=== PATIENT | male | born 1945 | race Caucasian/White ===

== ENCOUNTER → 2018-11-06 13:36 | Outpatient (CLI) | payer OTHER, SELFPAY ==
--- NOTE | 2018-11-06 | DI.MRI.S_ITS ---
PROCEDURE: MR KNEE LT WO CON INDICATIONS: Unilateral primary osteoarthritis, left knee TECHNIQUE: Noncontrast sagittal PD fast spin echo and T2 fast spin echo with fat saturation, sagittal 3-D FLASH with fat saturation; coronal T1 spin echo and PD fast spin echo with fat saturation, and axial PD fast spin echo with fat saturation through the knee. COMPARISON: None. FINDINGS: Image quality: Excellent. Menisci: The anterior multiple cut off saw operator horns of the medial meniscus are detached. There is degenerative fraying of the free edge of the anterior and posterior horns as well as the body of the medial meniscus. There is vertically oriented linear high signal intensity traversing the anterior horn medial meniscus. Amorphous high signal intensity within the body and posterior horn of the medial meniscus is present, demonstrating superior and inferior articular surface extension, indicating degenerative tearing. Linear oblique high T2 signal intensity traverses the posterior horn lateral meniscus, demonstrating superior and inferior articular surface extension, indicating oblique tearing. Cruciate ligaments: The anterior cruciate ligament demonstrates chronic full-thickness tearing. Posterior cruciate ligament is intact. Medial structures: The medial collateral ligament demonstrates high grade fluid signal at the femoral origin. Visualized portions of the pes anserinus tendons appear normal. There is a small amount of medial bursal fluid. There is mild T2 signal elevation within the semimembranosus tendon at the tibial insertion site. Lateral structures: The lateral collateral ligament demonstrates moderate fluid signal at the femoral origin. The, long and short heads of the biceps femoris tendon appear intact. The popliteus tendon appears normal. Iliotibial band appears normal. Anterior structures: The quadriceps and patellar tendons appear intact. There is mild T2 signal elevation within the patellar tendon at the patellar insertion site. Patellar alignment is normal. No femoral trochlear dysplasia or ventral trochlear prominence. No edema in the infrapatellar fat pad. Bones and cartilage: No bone marrow contusions or fractures. There is severe tricompartmental periarticular osteophyte formation. There is mild subchondral degenerative marrow edema within the weightbearing aspects of the medial and lateral femoral condyles, as well as the medial and lateral tibial plateaus. There is severe diffuse articular cartilage loss overlying the weightbearing aspect of the medial femoral condyle and medial tibial plateau. There is a focal region of full-thickness articular cartilage loss overlying the posterior weightbearing aspect of the lateral femoral condyle measuring 12 mm. Mild diffuse articular cartilage loss overlies the medial and lateral patellar facets. Joint space: There is a small knee joint effusion. There are multiple intra-articular loose bodies, largest of which is in the posterior aspect of the intercondylar notch measuring 15 mm. Small Ramos's cyst. Small ganglion cyst along the popliteus. Normal appearing synovial plicae are incidentally noted. IMPRESSION: 1. Tricompartment osteoarthritis with associated articular cartilage loss, knee joint effusion, and intra-articular loose bodies. 2. Chronic full-thickness anterior cruciate ligament tearing. 3. Partial-thickness tears of the medial and lateral collateral ligaments. 4. Medial and lateral meniscal tearing. 5. Insertional tendinitis of the semimembranosus. 6. Medial bursitis. 7. Mild patellar tendinitis. Dictated by: Sophia Benedict M.D. on 11/06/2018 at 14:29 Approved by: Sophia Benedict M.D. on 11/06/2018 at 14:39
== END ==
PROVIDERS: PCP Family Medicine; Visit Provider Orthopaedic Surgery
DX: M17.12 Unilateral primary osteoarthritis, left knee (principal); S83.512A Sprain of anterior cruciate ligament of left knee, initial encounter; S83.422A Sprain of lateral collateral ligament of left knee, initial encounter; S83.412A Sprain of medial collateral ligament of left knee, initial encounter; S83.282A Other tear of lateral meniscus, current injury, left knee, initial encounter; S83.242A Other tear of medial meniscus, current injury, left knee, initial encounter; M76.52 Patellar tendinitis, left knee
CPT/HCPCS: 73721

== ENCOUNTER 2019-01-22 08:22 | Day surgery (SDC) | payer OTHER, SELFPAY ==
[2019-01-08 09:48] VITALS: BMI 26.9
[2019-01-22] VITALS (13 sets, daily range): BP systolic 82–143; BP diastolic 46–91; PULSE 49–75; RESP 11–92; TEMP 35.8–36.7; O2SAT 13–98; BMI 26.9
--- NOTE | 2019-01-22 07:56 | DI.RAD.S_ITS ---
PROCEDURE: XR KNEE LT 1TO2V INDICATIONS: post op TECHNIQUE: 2 views of the knee were acquired. COMPARISON: None. FINDINGS: Bones: Postsurgical changes of a left total knee arthroplasty are noted. Hardware components are in expected alignment with no radiographic evidence of acute hardware complication. No convincing periprosthetic fractures identified. Soft tissues: A surgical drain projects over the anterior left knee joint. There is a small to moderate left knee joint effusion. There is diffuse anterior knee soft tissue subcutaneous emphysema and soft tissue edema consistent with postsurgical change. Vascular calcifications are present. IMPRESSION: Postsurgical changes of left total knee arthroplasty placement as described above. Dictated by: Jorge Luis Jordan M.D. on 01/22/2019 at 15:36 Approved by: Jorge Luis Jordan M.D. on 01/22/2019 at 15:38
[2019-01-22] MEDS: ACETAMINOPHEN 325 MG TABLET 975 MG PO ×3 (09:04→20:23)
[2019-01-22] MEDS: PREGABALIN 75 MG CAPSULE PO (09:05)
[2019-01-22] MEDS: CELECOXIB 200 MG CAPSULE PO (09:05)
[2019-01-22] MEDS: LACTATED RINGERS 1,000 ML 42 ML IV ×2 (09:06→12:45)
[2019-01-22] MEDS: VANCOMYCIN 1,000 MG/200 ML PIGGYBACK 200 MG IV (09:46)
--- NOTE | 2019-01-22 10:37 | PM.PREOP ---
Pre-operative Note Interval Note History & Physical reviewed/Exam performed by Physician: Yes Changes to H&P: No
--- NOTE | 2019-01-22 10:38 | PM.OP.1 ---
Operative Date/Time/Diagnoses Date of procedure: 01/22/19 Time of procedure: 10:59 Pre-op diagnosis: Left knee osteoarthritis Post-op diagnosis: same Procedure & Clinicians Procedure: Left total knee arthroplasty Same procedure as scheduled: Yes Indications: The patient has had progressively worsening left knee pain with radiographic changes consistent with arthritis. Non-operative management has failed and the patient has requested total knee replacement. The risks, benefits and alternatives to surgery were discussed with the patient prior to proceeding. Risks discussed included, but were not limited to, failure to relieve pain, stiffness, infection, nerve damage, deep venous thrombosis, pulmonary embolism, stroke, coma, heart attack, permanent paralysis and , as well as the potential need for eventual revision of the prosthetic. Surgeon: Brisa Rueda Regulatory Services Consultant: Hugo Valente Anesthesia Type: General and Spinal Operative Notes Findings: Severe left knee osteoarthritis, good stability Closure Type: primary Specimen(s): none sent Prosthetic devices, grafts, tissues, transplants, or devices: Rueda [employer]hew Journey BCS 2 size 5 femur, size 5 tibia, 38 patella, +9 poly Applied: drain(s) Estimated Blood Loss (mL): 200 Blood products transfused: none Tourniquet time (min): 99 Procedure in detail: The patient was seen in the pre-operative area, where the patient identified the left knee as the operative site and this was marked with my initials. The patient received pre-operative antibiotics, and was taken to the operating room and placed on the operative table in the supine position. After satisfactory anesthesia, a horse race timer out was performed. The left leg was encircled with a tourniquet about the proximal thigh, and the leg was prepared from the toes to the tourniquet with ChloroPrep in the usual fashion and draped through sterile drapes. The leg was elevated and exsanguinated with Eschmark bandage and the tourniquet inflated to [250] mmHg pressure. The knee was approached through an approximately 18 cm incision centered over the patella and carried into the knee through a medial parapatellar arthrotomy. A portion of the medial and lateral meniscus was resected. Soft tissue was carefully mobilized around the patella the patella was measured with a caliper. Bone was resected from the patella and the patellar height was reconstituted with up an appropriate sized patellar component. A cover was then placed on the patella. A small amount of additional medial and lateral meniscus was resected. The visionare guide fit well to the distal femur. It looked like an appropriate distal femoral cut and the cut was made without difficulty. The rotation was assessed and the appropriate size femoral guide was placed on the distal femur and finishing cuts were made. There was no evidence of notching. The anterior, posterior and chamfer cuts were then made. The posterior osteophytes and soft tissues were then removed. The posterior capsule was injected with part of a mixture of 60 ml 0.25% Marcaine mixed with 20 ml Exparel for post operative pain control. The remainder of this mixture was injected into the capsule and subcutaneous tissues during cement curing. The tibia was prepared and the visionaire guide fit well to the distal tibia. The rotation was assessed. The patient was placed in extension residual medial and lateral meniscus as well as any residual bone was carefully resected. 2mm additional tibia was resected. Hemostasis was achieved especially posteriorly. Additional local was injected into the posterior capsule. The extension gap was assessed and additional releases for gap balancing were performed as necessary. It was checked with the gap office clinician. The femoral component was trial was placed and the notch was finished. Trial tibial and femoral components were then placed and the knee placed through a range of motion. Range of motion was [0-130], with good stability throughout the range. The trials were then removed, and the tibia was finished. The bone was prepared with pulsatile lavage, and dried with a sponge. Cement was applied and the final prosthetics placed. Excess cement was removed during and after cement curing. A brief Betadine soak was performed. After confirming there was no extruded cement posteriorly, the final tibial insert was placed. The knee was copiously irrigated and the tourniquet deflated. Hemostasis was obtained with the Bovie. A drain was placed and brought out superolaterally. The capsule was closed with interrupted Vicryl suture. The subcutaneous layer was closed with barbed sutures, and the skin with a running 3-0 V-Lock suture and Surgical glue. An Aquacel Ag dressing was applied and the patient was taken to recovery having tolerated the procedure well. Complications: none Post-operative Condition: stable Disposition: Acute Care Plan for aftercare: The patient will be maintained on a standard total knee replacement protocol with weight bearing as tolerated. The patient will receive Lovenox and sequential compression devices for DVT prophylaxis. The patient will be discharged home when safe for the home environment.
[2019-01-22] MEDS: CEFAZOLIN 2 GM/100 ML FROZ.PIGGY IV ×2 (10:55→20:22)
--- NOTE | 2019-01-22 11:39 | SUR.OPER ---
Supine on padded OR bed. Pillow under head, arms secured on padded armboards <90 degree abduction. Safety belt across torso. Non-operative leg secured with tape over blanket over lower leg. Operative leg secured in [place]. Foam padded brace at thigh of operative leg.
[2019-01-22] MEDS: BUPIVACAINE LIPOSOME 266 MG/20 ML VIAL INJ (11:46)
[2019-01-22] MEDS: BUPIVACAINE 0.25% W/ EPI 30 ML VIAL 60 ML INJ (11:46)
[2019-01-22] MEDS: TRANEXAMIC ACID 1,000 MG VIAL 1000 MG INJ ×2 (11:47→13:15)
[2019-01-22] MEDS: SODIUM CHLORIDE IRRIG SOLUTION 250 ML, POVIDONE-IODINE SPONGE STICKS 1 APPLIC IRR (11:48)
--- NOTE | 2019-01-22 14:40 | SUR.PHASEI ---
Transferred to room 225 in stable condition. VSS, HV to be unclamped at 1515. Update on pts intake given to LORE Medrano.
--- NOTE | 2019-01-22 15:01 | PC.NURSE ---
Patient is resting in bed post-op. Patient is A/Ox4, grecia in the 40's. Patient denies pain, SOB, N/V. LLE dsg is CDI, ice iapplied to incision site. Patient confirms sensation in bilateral LE. Confirms tingling, numbness but unable to move bilateral LE. Bilateral LE pulses are equal. Bilateral SCD's applied. IV is patent and intact in RUE. LR at 125ml/hr per orders. Patient taking sips of water, says he is hungry.
[2019-01-22] MEDS: LACTATED RINGERS 1,000 ML 125 ML IV (15:21)
[2019-01-22] MEDS: ASPIRIN EC 81 MG TABLET PO (20:22)
[2019-01-22] MEDS: DOCUSATE 100 MG CAPSULE PO (20:23)
[2019-01-23] MEDS: LACTATED RINGERS 1,000 ML 125 ML IV (00:07)
[2019-01-23 00:23] VITALS: BP 118/69; PULSE 64; RESP 18; TEMP 36.7; O2SAT 94
[2019-01-23] MEDS: CEFAZOLIN 2 GM/100 ML FROZ.PIGGY IV (03:04)
[2019-01-23 04:56] VITALS: BP 113/70; PULSE 59; RESP 16; TEMP 36.8; O2SAT 94
[2019-01-23 06:20] LABS: Hematocrit 42.6 % (41-53); Hemoglobin 14.2 g/dL (13.5-17.5)
--- NOTE | 2019-01-23 06:32 | PC.NURSE ---
Pt POD 1 s/p TKR on left knee. DSG CDI. Pt performing ankle waves. Appeared to not sleep overnight. Reports pain tolerable, no pain medication given overnight. Pt states he is expecting pain to increased per MD once surgery medication wears off in 24hrs ~1400. IVF DC'd per order this morning at 0600. Pt eating large amts of food overnight. Denies nausea. Anticipating discharge to home around 1100 after seen by PT.
[2019-01-23 08:00] VITALS: BP 140/77; PULSE 63; RESP 20; TEMP 37.1; O2SAT 95
[2019-01-23] MEDS: OXYCODONE IR 5 MG TABLET PO (08:48)
[2019-01-23] MEDS: METOPROLOL ER 50 MG TABLET PO (08:48)
[2019-01-23] MEDS: POTASSIUM CHLORIDE 10 MEQ TAB PO (08:49)
[2019-01-23] MEDS: DOCUSATE 100 MG CAPSULE PO (08:49)
[2019-01-23] MEDS: ACETAMINOPHEN 325 MG TABLET 975 MG PO (08:49)
[2019-01-23] MEDS: ATORVASTATIN 20 MG TABLET PO (08:49)
[2019-01-23] MEDS: LISINOPRIL 20 MG TABLET 40 MG PO (08:49)
[2019-01-23] MEDS: ASPIRIN EC 81 MG TABLET PO (08:49)
[2019-01-23] MEDS: hydroCHLOROthiazide 25 MG TABLET PO (08:49)
[2019-01-23] MEDS: FISH OIL 1,000 MG CAPSULE 1000 MG PO (08:50)
[2019-01-23] MEDS: AMLODIPINE 2.5 MG TABLET PO (08:50)
--- NOTE | 2019-01-23 09:10 | PT.IIE ---
Current Diagnoses Unilateral primary osteoarthritis, left knee (01/22/19) Surgery Performed Operation Date: 01/22/19 10:45 Actual Procedures p Total Knee Arthroplasty(Left) - Brisa Rueda MD Surgical History (Last Updated 01/08/19 @ 10:25 by Shannen Lan, RN) History of colonoscopy (Acute 05/24/16) Hx of bilateral cataract extraction (Acute ~2008) Hx of tonsillectomy (Acute) Medical History (Last Updated 01/08/19 @ 10:43 by Shannen Lan RN) Aortic stenosis (Acute) BCC (basal cell carcinoma) (Acute) DJD (degenerative joint disease) (Acute) Former smoker (Acute) Hearing loss (Acute) Heartburn (Acute) HLD (hyperlipidemia) (Acute) HTN (hypertension) (Acute) SARAH on CPAP (Acute) Osteoarthritis (Acute) RLS (restless legs syndrome) (Acute) Physical Therapy Inpatient Evaluation/Re-Eval M1 PT/OT-IP Prior Functional Status Start: 01/23/19 09:49 Freq: NEEDED Status: Active Protocol: Document 01/23/19 09:10 AB (Rec: 01/23/19 09:56 AB [id number]) Medical Review Prior Functional Status Medical History Reviewed Yes Communication able to make needs known Mobility and Gait pt stated that he is independent with all mobilities and ambulation without AD Social History Household Members spouse Living Arrangements House Number of Floors (Floors) Two Floors Number of Stairs To Enter/Railing? pt will stay at her daughter's house: info regarding daughter's home set up no steps to enter; pt will stay on main level Home Environment Standard Height Toilet,Tub/ Shower Home Equipment Front Wheel Walker,Raised Toilet Seat Without Armrests Employment Status Retired Additional Social History Comment pt plans to do sponge bathing M2 PT-IP Current Condition Start: 01/23/19 09:49 Freq: NEEDED Status: Active Protocol: Document 01/23/19 09:10 AB (Rec: 01/23/19 09:56 AB [id number]) Physical Therapy Current Condition Current Condition Evaluation Date 01/23/19 Treatment Diagnosis s/p L TKA; difficulty in walking Onset Date 01/22/19 Weight Bearing Status Weight Bearing Status Weight Bear as Tolerated M3 PT-IP Subjective Start: 01/23/19 09:49 Freq: NEEDED Status: Active Protocol: Document 10/18/19 09:10 AB (Rec: 01/23/19 09:56 AB [id number]) Subjective Physical Therapy Visit Type Type Initial Evaluation Visit Start Time 09:10 Visit Stop Time 09:41 Total Visit Minutes 31 Number of ENVELOPE SEALER Visits 0 Physical Therapy Visit Comments Patient Comments pt agreeable to do PT Therapy Pain Assessment Pain When Pain Assessed At Rest Pain Present Pain Present Pain Reported Location Left Knee Intensity 2 Scale Used Numeric (1 - 10) Pain Management Techniques Apply Cold,Timing of Activity with Medications M4 PT-IP Mobility and Gait Start: 01/23/19 09:49 Freq: NEEDED Status: Active Protocol: Document 01/23/19 09:10 AB (Rec: 01/23/19 09:56 AB [id number]) PT-Bed Mobility Assessment Supine to Sit Supine to Sit Standby Assistance Scooting Scooting to Edge of Bed Standby Assistance PT-Transfer Assessment Sit to and From Stand Sit to and from Stand Standby Assistance Equipment Transfer Assistive Device Gait Belt,Front Wheeled Walker Transfers Transfer Destination Chair Transfer Technique pt ambulated using FWW Transfer Ability Level of Assist Standby Assistance,Contact Guard Assistance Gait Assessment Gait Gait Assistance Required: Standby Assistance,Contact Guard Assist Distance (Feet) 150 Able to Maintain Weight Bearing Status Yes During Gait Assistive Devices Assistive Device Gait Belt,Front Wheeled Walker Orthotic/Prosthetic Devices or Brace: No Gait Deviations General Gait Pattern Antalgic Factors Limiting Gait Function Factors Limiting Gait Function Decreased Activity Tolerance, Decreased Strength,Limited Range of Motion,Pain,Poor Balance PT-Balance Assessment Sitting Balance and Reactions Static Sitting Balance Ability Normal Dynamic Sitting Balance Ability Normal Standing Balance and Reactions Static Standing Balance Ability Good Dynamic Standing Balance Ability Fair Device Used FWW M5 PT-IP Objective Assessments Start: 01/23/19 09:49 Freq: NEEDED Status: Active Protocol: Document 01/23/19 09:10 AB (Rec: 01/23/19 09:56 AB [id number]) Orientation Orientation/Cognition Level of Alertness Alert Orientation Name,Place,Situation Language Function Ability No Deficits Noted Safety Awareness Understands Safety Issues Memory Description No Deficits Noted Gross Range of Motion Lower Extremity ROM Assessment Left Impaired Impairments L knee flexion : 80 deg L knee extension: -10 deg Strength Lower Extremity Strength Assessment Left Impaired Hip 4-/5 Knee 3+/5 Coordination Assessment Gross Coordination Gross Coordination WNL Sensation Assessment Sensation Gross Sensation WNL Muscle Tone Muscle Tone WNL Yes M6 PT-IP Treatment Start: 01/23/19 09:49 Freq: NEEDED Status: Active Protocol: Document 01/23/19 09:10 AB (Rec: 01/23/19 09:56 AB [id number]) Physical Therapy Treatment Exercises Exercises Ankle Pumps,Quad Sets,Heel Slides Education Education Provided Precautions,Weight Bearing Status,Post-Op Packet,Safety M7 PT-IP Assessment and Plan Start: 01/23/19 09:49 Freq: NEEDED Status: Active Protocol: Document 01/23/19 09:10 AB (Rec: 01/23/19 09:56 AB [id number]) PT Summary Assessment and Plan Potential Rehabilitation Potential Good Status of Condition at Evaluation Stable Summary Impairments Pain,ROM,Strength,Balance,Bed Mobility,Transfers,Gait, Activity Tolerance Assessment Summary pt requiring SBA to CGA with mobility using FWW. pt plans to go home with family to assist him. pt may go home when medically stable. Goals Bed Mobility Goal Independent Transfer Goal Independent,Crutches Gait Goal Independent,Front Wheel Walker Gait Distance 250 Days to Meet Goals 3 Frequency of Treatment Frequency Of Treatment Twice a Day Treatment Plan Physical Therapy Treatment Plan Bed Mobility Training,Transfer Training,Gait Training, Therapeutic Exercise,Balance Retraining,Post Op Education, Discharge Planning,Hot or Cold Pack,Neuromuscular Re-ed, Coordination Retraining,Manual Therapy Recommendations To Nursing Amount of Assist Needed 1 Person Assist Discharge Recommendations PT Discharge Recommendations Home with Assistance, Outpatient PT
--- NOTE | 2019-01-23 09:13 | PM.DS.1 ---
History of Present Illness History of Present Illness Date Patient Seen: 01/23/19 Time Patient Seen: 09:13 Chief complaint: 41419 Left Total Knee Arthroplasty *OPB* Narrative: Please see HPI previously recorded in chart. Discharge Providers Provider Discharge Date: 01/23/19 Primary care physician: Sung Stein MD Consults: 01/22/19 07:56 Consult to Anesthesiology Routine Comment: Consulting Provider: Anesthesiologist Reason for consultation: Regional block for post operative pain control 01/22/19 09:18 Consult to Respiratory Therapy Evaluate & Treat Comment: Physician Instructions: Evaluate and treat 01/22/19 14:37 Consult to Discharge Planning Routine Comment: Consult to Physical Therapy Evaluate & Treat Comment: Physician Instructions: postop TKA protocol Consult to Respiratory Therapy Evaluate & Treat Comment: Physician Instructions: Evaluate and treat Discharge provider: Brandie Laguna PA-C Summary Hospital Course Discharge Diagnosis: s/p left total knee arthroplasty Hospital Course: The patient has had progressively worsening left knee pain with radiographic changes consistent with arthritis. Non-operative management has failed and the patient has requested total knee replacement. The risks, benefits and alternatives to surgery were discussed with the patient prior to proceeding. Risks discussed included, but were not limited to, failure to relieve pain, stiffness, infection, nerve damage, deep venous thrombosis, pulmonary embolism, stroke, coma, heart attack, permanent paralysis and , as well as the potential need for eventual revision of the prosthetic. After obtaining informed consent he was taken to the operating room where he underwent a left total knee arthroplasty 01/22/[address] Rueda which he tolerated well without complications. Afterwards he was taken to the [facility] care [facility] where he has been progressing well postoperatively. His pain has been well controlled and he has home supply of Oxycodone provided preoperatively. He has mobilized well with physical therapy and been cleared from their standpoint. He is voiding appropriately and tolerating a diet. Drain was discontinued prior to discharge. He will be maintained on ASA 81mg BID for DVT prophylaxis. He denies any chest pain, shortness of breath, nausea, vomiting, fevers or chills. Outpatient follow up is in place. He is medically stable for discharge at this time. Status at Discharge Cognitive/behavioral status at discharge: oriented Functional status at discharge: uses cane/walker Overall status at discharge: patient is progressing back to baseline Exam Vital Signs (past 8 hours): Oxygen Delivery Method Room Air Oxygen Flow Rate 0 Narrative Exam Narrative: 73 year old male resting comfortably in chair. Alert and oriented in no acute distress. Aquacel dressing in place over left knee is CDI. Hemovac in place with sanguineous drainage. Patient able to flex extend the foot. Sensation intact to light touch in distal extremity. Palpable pedal pulse. Calves are soft and compressible bilaterally. Objective Labs Result Diagrams: 01/23/19 06:05 Discharge Plan Discharge Plan Patient Disposition: Home Discharge Med Rec/Prescriptions Prescriptions: New acetaminophen 325 mg Tablet 975 mg PO TID Qty: 60 RF: 0 aspirin 81 mg Tablet,Delayed Release (Dr/Ec) 81 mg PO BID Qty: 60 RF: 0 docusate sodium [DOK] 100 mg Capsule 100 mg PO BID Qty: 60 RF: 0 ibuprofen 600 mg Tablet 600 mg PO Q6HR PRN (Reason: As Needed For Fever/Mild Pain) Qty: 60 RF: 0 oxycodone 5 mg Tablet 5 mg PO Q3HR PRN (Reason: Pain, Moderate (4-6)) Qty: 1 RF: 0 Continued atorvastatin 20 mg Tablet 20 mg PO DAILY RF: 0 metoprolol succinate 50 mg Tablet Extended Release 24 Hr 50 mg PO DAILY RF: 0 amlodipine 2.5 mg Tablet 2.5 mg PO DAILY RF: 0 potassium chloride 10 mEq Tablet Extended Release 10 meq PO DAILY RF: 0 ranitidine HCl 150 mg Capsule 150 mg PO BID RF: 0 hydrochlorothiazide 25 mg Tablet 25 mg PO DAILY RF: 0 lisinopril 40 mg Tablet 40 mg PO DAILY RF: 0 tadalafil [Cialis] 20 mg Tablet 20 mg PO DAILY PRN (Reason: Sexual Activity) RF: 0 omega 8-waf-yvo-fish oil [Fish Oil] 1,000 mg (120 mg-180 mg) Capsule 1 cap PO DAILY RF: 0 Discontinued aspirin [Aspir-81] 81 mg Tablet,Delayed Release (Dr/Ec) 81 mg PO DAILY RF: 0 Follow up/Referrals: Sung Stein MD [Primary Care Provider] - Brisa Rueda MD [Physician] - Discharge Orders: Discharge (Order); Ordered 01/23/19 Ordered By: Brandie Laguna Provider Discharge Instructions Diet: Diet as Tolerated Activity: Weight bear as tolerated. Please use walker or cane for fall prevention. Cold/Heat Therapy: Ice packs as needed. Other treatments: Refer to [facility] guide. Skin/Wound/Dressing Care Report to your healthcare provider any signs of infection, such as:: chills, fever, night sweats, unusual drainage and unusual redness Dressing: Walter wrap can be removed tomorrow. Aquacel dressing should remain in place. Please call the office if this dressing becomes saturated. Visit Report/Discharge Packet Instructions: DI for Knee Replacement, Oxycodone Discharge Data Primary Care Provider: Sung Stein Attending Provider: Brisa Rueda Discharges patient from system. Discharge Date/Time: 01/23/19 11:57 Quality VTE Deep Vein Thrombosis/Pulmonary Embolism Present on Admission: No
--- NOTE | 2019-01-23 10:50 | PC.NURSE ---
Pt given 1 oxycodone for discomfort and working with phyical therapy. He will be going home at 1130. Sitting up in chair comfortably.
== END 2019-01-23 11:57 | disposition home or self-care (01) ==
LOC: OR 14:21 → AC 14:22
PROVIDERS: PCP Family Medicine; Visit Provider Orthopaedic Surgery
PROC: 0SRD0JZ Replacement of Left Knee Joint with Synthetic Substitute, Open Approach (ICD-10-PCS; CPT 27447; principal; 2019-01-22 10:45)
DX: M17.12 Unilateral primary osteoarthritis, left knee (principal); G47.30 Sleep apnea, unspecified; I10 Essential (primary) hypertension; E78.00 Pure hypercholesterolemia, unspecified
CPT/HCPCS: 27447; 36415; 73560; 85014; 85018; 97161; C1776; A9270; C9290; J0690; J2250; J2704; J3010

== ENCOUNTER → 2019-03-27 10:26 | Outpatient (CLI) | payer OTHER, SELFPAY ==
[2019-01-22 14:32] VITALS: BMI 26.9
--- NOTE | 2019-03-27 | DI.MRI.S_ITS ---
PROCEDURE: MR KNEE RT WO CON INDICATIONS: Unilateral primary osteoarthritis, right knee TECHNIQUE: Rueda-Nephew Visionaire protocol was performed. Noncontrast sagittal PD fast spin echo and T2 fast spin echo with fat saturation, sagittal 3-D FLASH with fat saturation; coronal T1 spin echo and PD fast spin echo with fat saturation, and axial PD fast spin echo with fat saturation through the knee. COMPARISON: [facility], MR, MR KNEE LT WO CON, 11/06/2018, 13:52. FINDINGS: Image quality: Excellent. Menisci: Circumferential macerated tear of the medial meniscus, with slight partial extrusion. Theoretically, this could reflect prior post surgical changes if there is appropriate history. Lateral meniscal tear involving posterior horn and body, with abnormal signal extending to the undersurface and periphery. Cruciate ligaments: Anterior cruciate ligament not well seen and probably ruptured. Posterior cruciate ligament appears intact. Medial structures: There is medial bowing of the medial collateral ligament, with mild internal signal changes and no complete rupture. There is adjacent soft tissue edema. The appearance could reflect reactive changes to medial compartment pathology, versus low-grade sprain of the MCL. Pes anserinus tendons appear grossly unremarkable. Semimembranosus tendon appears intact. Lateral structures: The lateral collateral ligament demonstrates thickening and intrasubstance signal change in keeping with low grade sprain, statistically chronic, although technically age indeterminate. Biceps femoris tendon appears intact. Popliteus tendon not well seen and demonstrates intrasubstance T2 hyperintensity. Iliotibial band appears intact. Anterior structures: Quadriceps tendon intact. Medial and lateral patellofemoral ligaments intact. There is mild patellar tendinopathy. Prepatellar and superficial infrapatellar subcutaneous edema/fluid. Bones and cartilage: No focal marrow contusion or discrete low signal fracture line. Within the medial compartment, full-thickness loss the femoral and tibial articular cartilage Within the lateral compartment, diffuse partial-thickness loss of the femoral and tibial articular cartilage Within the patellofemoral compartment, diffuse surface fraying of the trochlear and patellar cartilage Joint space: Moderate joint effusion. Multiloculated Ramos's cyst approximately 3 cm in the cephalocaudad dimension 1 cm loose body in the posterior joint space image 86/8. IMPRESSION: Circumferential macerated tear of the medial meniscus, although postoperative appearance in the differential if there is appropriate surgical history Lateral meniscal tear involving posterior horn and body. 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 on 03/27/2019 at 11:24 Approved by: Rony Weiss M.D. on 03/27/2019 at 11:49
== END ==
PROVIDERS: PCP Family Medicine; Visit Provider Orthopaedic Surgery
DX: M17.11 Unilateral primary osteoarthritis, right knee (principal); S83.241A Other tear of medial meniscus, current injury, right knee, initial encounter; S83.281A Other tear of lateral meniscus, current injury, right knee, initial encounter; M25.461 Effusion, right knee; M71.21 Synovial cyst of popliteal space [Baker], right knee
CPT/HCPCS: 73721

== ENCOUNTER 2019-06-02 06:00 | Day surgery (SDC) | payer OTHER, SELFPAY ==
[2019-01-22 14:32] VITALS: BMI 26.9
[2019-05-20 12:16] VITALS: BMI 28.2
[2019-06-02] VITALS (16 sets, daily range): BP systolic 82–148; BP diastolic 51–82; PULSE 53–61; RESP 11–25; TEMP 36.4–37.1; O2SAT 92–97; BMI 28.2
--- NOTE | 2019-06-02 06:00 | DI.RAD.S_ITS ---
PROCEDURE: XR KNEE RT 1TO2V INDICATIONS: post op films TECHNIQUE: 2 view(s) of the knee acquired. COMPARISON: [facility], CR, XR KNEE LT 1TO2V, 01/22/2019, 13:55. FINDINGS: Bones: Patient is status post knee joint arthroplasty. Hardware components are in expected positions. Visualized bony structures are intact. Soft tissues: Overlying postoperative changes are noted. IMPRESSION: Right total knee arthroplasty with a surgical drain overlying the operative bed, normal alignment. Dictated by: Izaiah Kyle M.D. on 06/02/2019 at 12:24 Approved by: Izaiah Kyle M.D. on 06/02/2019 at 12:25
[2019-06-02] MEDS: MELOXICAM 7.5 MG TABLET 15 MG PO (06:55)
[2019-06-02] MEDS: PREGABALIN 75 MG CAPSULE PO (06:55)
[2019-06-02] MEDS: ACETAMINOPHEN 325 MG TABLET 975 MG PO (06:55)
[2019-06-02] MEDS: VANCOMYCIN 1,000 MG/200 ML PIGGYBACK 200 MG IV (07:08)
[2019-06-02] MEDS: LACTATED RINGERS 1,000 ML 42 ML IV ×2 (07:18→09:10)
--- NOTE | 2019-06-02 07:47 | PM.PREOP ---
Pre-operative Note Interval Note History & Physical reviewed/Exam performed by Physician: Yes Changes to H&P: No
--- NOTE | 2019-06-02 07:48 | PM.OP.1 ---
Operative Date/Time/Diagnoses Date of procedure: 06/02/19 Time of procedure: 07:59 Pre-op diagnosis: right knee OA Post-op diagnosis: same Procedure & Clinicians Procedure: Right total knee arthroplasty Same procedure as scheduled: Yes Indications: The patient has had progressively worsening right knee pain with radiographic changes consistent with arthritis. Non-operative management has failed and the patient has requested total knee replacement. The risks, benefits and alternatives to surgery were discussed with the patient prior to proceeding. Risks discussed included, but were not limited to, failure to relieve pain, stiffness, infection, nerve damage, deep venous thrombosis, pulmonary embolism, stroke, coma, heart attack, permanent paralysis and , as well as the potential need for eventual revision of the prosthetic. Surgeon: Brisa Rueda Food And Drug Research Scientist: Brandie Laguna Anesthesia Type: General and Spinal Operative Notes Findings: Severe right knee osteoarthritis, good stability, good bone Closure Type: primary Specimen(s): none sent Prosthetic devices, grafts, tissues, transplants, or devices: Rueda and Nephew Rae BCS 2 size 5 femur, size 5 tibia, +9 poly, 38 mm round patella Applied: drain(s) Estimated Blood Loss (mL): 250 Blood products transfused: none Tourniquet time (min): 94 Procedure in detail: The patient was seen in the pre-operative area, where the patient identified the right knee as the operative site and this was marked with my initials. The patient received pre-operative antibiotics, and was taken to the operating room and placed on the operative table in the supine position. After satisfactory anesthesia, a full stack java developer out was performed. The right leg was encircled with a tourniquet about the proximal thigh, and the leg was prepared from the toes to the tourniquet with ChloroPrep in the usual fashion and draped through sterile drapes. The leg was elevated and exsanguinated with Eschmark bandage and the tourniquet inflated to [250] mmHg pressure. The knee was approached through an approximately 18 cm incision centered over the patella and carried into the knee through a medial parapatellar arthrotomy. A portion of the medial and lateral meniscus was resected. Soft tissue was carefully mobilized around the patella the patella was measured with a caliper. Bone was resected from the patella and the patellar height was reconstituted with up an appropriate sized patellar component. A cover was then placed on the patella. A small amount of additional medial and lateral meniscus was resected. The visionare guide fit well to the distal femur. It looked like an appropriate distal femoral cut and the cut was made without difficulty. The rotation was assessed and the appropriate size femoral guide was placed on the distal femur and finishing cuts were made. There was no evidence of notching. The anterior, posterior and chamfer cuts were then made. The posterior osteophytes and soft tissues were then removed. The posterior capsule was injected with part of a mixture of 60 ml 0.25% Marcaine mixed with 20 ml Exparel for post operative pain control. The remainder of this mixture was injected into the capsule and subcutaneous tissues during cement curing. The tibia was prepared and the visionaire guide fit well to the distal tibia. The rotation was assessed. The patient was placed in extension residual medial and lateral meniscus as well as any residual bone was carefully resected. [No] additional tibia was resected. Hemostasis was achieved especially posteriorly. Additional local was injected into the posterior capsule. The extension gap was assessed and additional releases for gap balancing were performed as necessary. The femoral component was trial was placed and the notch was finished. Trial tibial and femoral components were then placed and the knee placed through a range of motion. Range of motion was [0-130], with good stability throughout the range. The trials were then removed, and the tibia was finished. The bone was prepared with pulsatile lavage, and dried with a sponge. Cement was applied and the final prosthetics placed. Excess cement was removed during and after cement curing. A brief Betadine soak was performed. After confirming there was no extruded cement posteriorly, the final tibial insert was placed. The knee was copiously irrigated and the tourniquet deflated. Hemostasis was obtained with the Bovie. A drain was placed and brought out superolaterally. The capsule was closed with interrupted # 1 black braided suture. The subcutaneous layer was closed with barbed sutures, and the skin with a running 3-0 V-Lock suture and Surgical glue. An Aquacel Ag dressing was applied and the patient was taken to recovery having tolerated the procedure well. Complications: none Post-operative Condition: stable Disposition: Acute Care Plan for aftercare: The patient will be maintained on a standard total knee replacement protocol with weight bearing as tolerated. The patient will receive aspirin and sequential compression devices for DVT prophylaxis. The patient will be discharged home when safe for the home environment.
[2019-06-02] MEDS: CEFAZOLIN 2 GM/100 ML FROZ.PIGGY IV ×2 (08:00→17:01)
--- NOTE | 2019-06-02 08:22 | SUR.OPER ---
Supine on padded OR bed. Pillow under head, arms secured on padded armboards <90 degree abduction. Safety belt across torso. Non-operative leg secured with tape over blanket over lower leg. Operative leg secured in DeMayo/Daniele positioner. Foam padded brace at thigh of operative leg.
[2019-06-02] MEDS: BUPIVACAINE 0.25% W/ EPI 30 ML VIAL 60 ML INJ (08:38)
[2019-06-02] MEDS: BUPIVACAINE LIPOSOME 266 MG/20 ML VIAL INJ (08:41)
[2019-06-02] MEDS: TRANEXAMIC ACID 1,000 MG VIAL 1000 MG INJ ×2 (08:41→09:56)
[2019-06-02] MEDS: SODIUM CHLORIDE IRRIG SOLUTION 250 ML, POVIDONE-IODINE SPONGE STICKS 1 APPLIC IRR (08:42)
--- NOTE | 2019-06-02 11:04 | SUR.PHASEI ---
Report called to Lindsey.
[2019-06-02] MEDS: LACTATED RINGERS 1,000 ML 125 ML IV ×2 (11:50→20:43)
[2019-06-02] MEDS: IBUPROFEN 400 MG TABLET PO ×3 (12:12→20:46)
--- NOTE | 2019-06-02 12:22 | PC.NURSE ---
Addendum entered by Lindsey Ramirez R.N. 06/02/19 13:22: Delay in pt being placed with Calf SCD's to BLE as SCD machine was unavailable. Placed on pt at 1315. Hemovac unclamped late at 1310 due to retrieving clamp scissors specific to clamp on drain which was a white small teeth, umbilical clamp. After unclamped, hemovac tubing had blood flow. Pt denies pain, in very good spirits, talking with Jacquie at bedside. Original Note: Day Shift- Report rec'd from LORE Mendoza in PACU at 1101. Pt arrived to unit and room 213 at 1115. Pt oriented to bed controls, call light, pain plan. Denies pain at that time, states is hungry. Pt's SO Jacquie in room. Pt missing his glasses, called PACU as none was found in pt's belongings bag. LORE Mendoza in PACU brought pt's glasses back to him. Right knee aquacel dressing CDI with jarrod wrap. Hemovac in place and insertion site covered with tegaderm dressing. Ice pack in place. Instructed pt to have a pillow placed distal to his knee and float his heel or have leg flat on bed. PPP, pt has numbness from knees to toes, able to move and lift BLE and perform ankle pump exercises. No other voiced concerns, call light within reach.
[2019-06-02] MEDS: ACETAMINOPHEN 325 MG TABLET 650 MG PO ×2 (14:05→20:45)
--- NOTE | 2019-06-02 16:20 | PT.IIE ---
Current Diagnoses Unilateral primary osteoarthritis, right knee (06/02/19) Surgery Performed Operation Date: 06/02/19 07:45 Actual Procedures p Total Knee Arthroplasty(Right) - Brisa Rueda MD Surgical History (Last Updated 05/20/19 @ 12:22 by Shannen Lan, RN) History of arthroplasty of left knee (Acute 01/22/19) History of colonoscopy (Acute 05/24/16) Hx of bilateral cataract extraction (Acute ~2008) Hx of tonsillectomy (Acute) Medical History (Last Updated 05/21/19 @ 10:59 by Shannen Lan RN) Aortic stenosis (Acute) BCC (basal cell carcinoma) (Acute) DJD (degenerative joint disease) (Acute) Former smoker (Acute) Hearing loss (Acute) Heartburn (Acute) HLD (hyperlipidemia) (Acute) HTN (hypertension) (Acute) SARAH on CPAP (Acute) Osteoarthritis (Acute) RLS (restless legs syndrome) (Acute) Physical Therapy Inpatient Evaluation/Re-Eval M1 PT/OT-IP Prior Functional Status Start: 06/02/19 16:58 Freq: NEEDED Status: Active Protocol: Document 06/02/19 16:20 AB (Rec: 06/02/19 17:19 AB [id number]) Medical Review Prior Functional Status Medical History Reviewed Yes Communication able to make needs known Mobility and Gait pt stated that he is modified independent with all mobilities and ambulation without AD. Social History Household Members none Living Arrangements House Number of Floors (Floors) Two Floors Number of Stairs To Enter/Railing? pt stays on main level of the house without steps to enter pt plans to stay at her daughter's house after surgery for ~ 2 days; daughter's house has a ramp to enter; pt stays on the main level of the house information regarding home set up is regarding daughter's house Home Environment Standard Height Toilet,Walk in Shower Home Equipment Front Wheel Walker,Straight Cane,Raised Toilet Seat w/ Armrests,Grab Bars In Shower M2 PT-IP Current Condition Start: 06/02/19 16:58 Freq: NEEDED Status: Active Protocol: Document 06/02/19 16:20 AB (Rec: 06/02/19 17:19 AB [id number]) Physical Therapy Current Condition Current Condition Evaluation Date 06/02/19 Treatment Diagnosis s/p R TKA; difficulty in walking Onset Date 06/02/2019 Weight Bearing Status Weight Bearing Status Weight Bear as Tolerated Allowed Weight Bearing Amount (enter % RLE WBAT or #) (%) M3 PT-IP Subjective Start: 06/02/19 16:58 Freq: NEEDED Status: Active Protocol: Document 06/02/19 16:20 AB (Rec: 06/02/19 17:19 AB [id number]) Subjective Physical Therapy Visit Type Type Initial Evaluation Visit Start Time 16:20 Visit Stop Time 16:53 Total Visit Minutes 33 Number of IRONWORKER WIRE FENCE ERECTOR Visits 0 Physical Therapy Visit Comments Patient Comments pt agreeable to do PT Therapy Pain Assessment Pain Present Pain Present Denied Pain M4 PT-IP Mobility and Gait Start: 06/02/19 16:58 Freq: NEEDED Status: Active Protocol: Document 06/02/19 16:20 AB (Rec: 06/02/19 17:19 AB [id number]) PT-Bed Mobility Assessment Supine to Sit Supine to Sit Standby Assistance PT-Transfer Assessment Sit to and From Stand Sit to and from Stand Contact Guard Assistance,1 Person Assistance,Use of Upper Extremities Equipment Transfer Assistive Device Gait Belt,Front Wheeled Walker Orthotic/Prosthetic Devices or Brace: No Transfers Transfer Destination Chair Transfer Technique ambulated using FWW Transfer Ability Level of Assist Contact Guard Assistance,1 Person Assistance,Use of Upper Extremities Comments Mobility Comments pt completed supine to sit SBA and cues for safety. completed sit to stand from EOB CGA and was able to maintain standing using FWW for support while assisted with brief management. pt ambulated ~ 75 ft using FWW CGA and agreed to sit up on the chair afterwards. positioned pt on chair. ice pack provided. call light and table placed within reach. Gait Assessment Gait Gait Assistance Required: Contact Guard Assist Distance (Feet) 75 Able to Maintain Weight Bearing Status Yes During Gait Assistive Devices Assistive Device Gait Belt,Front Wheeled Walker Orthotic/Prosthetic Devices or Brace: No Gait Deviations General Gait Pattern Antalgic,Decreased Stride Length,Decreased Feet Clearance Factors Limiting Gait Function Factors Limiting Gait Function Decreased Activity Tolerance, Decreased Strength,Limited Range of Motion,Pain,Poor Balance,Poor Safety Awareness PT-Balance Assessment Sitting Balance and Reactions Static Sitting Balance Ability Good Dynamic Sitting Balance Ability Good Standing Balance and Reactions Static Standing Balance Ability Fair Dynamic Standing Balance Ability Fair Device Used FWW M5 PT-IP Objective Assessments Start: 06/02/19 16:58 Freq: NEEDED Status: Active Protocol: Document 06/02/19 16:20 AB (Rec: 06/02/19 17:19 AB [id number]) Orientation Orientation/Cognition Level of Alertness Alert Orientation Name,Place,Situation Safety Awareness Understands Safety Issues Memory Description Short Term Impaired Gross Range of Motion Lower Extremity ROM Assessment Right Impaired Impairments R knee flexion : ~ 90 deg Strength Lower Extremity Strength Assessment Right Impaired Hip 3/5 Knee 3+/5 Coordination Assessment Gross Coordination Gross Coordination WNL Sensation Assessment Sensation Gross Sensation WNL Muscle Tone Muscle Tone WNL Yes M6 PT-IP Treatment Start: 06/02/19 16:58 Freq: NEEDED Status: Active Protocol: Document 06/02/19 16:20 AB (Rec: 06/02/19 17:19 AB [id number]) Physical Therapy Treatment Education Education Provided Precautions,Weight Bearing Status,Post-Op Packet,Safety M7 PT-IP Assessment and Plan Start: 06/02/19 16:58 Freq: NEEDED Status: Active Protocol: Document 06/02/19 16:20 AB (Rec: 06/02/19 17:19 AB [id number]) PT Summary Assessment and Plan Potential Rehabilitation Potential Good Status of Condition at Evaluation Stable Summary Impairments Pain,ROM,Strength,Balance,Bed Mobility,Transfers,Gait, Activity Tolerance Assessment Summary pt requiring CGA with mobility and will likely progress during hospital stay. pt plans to go home and stated that her daughter will be able to assist him. also stated that he is set up for outpt PT . will continue to assess mobility progress but if pt continues to improve will be able to go home when medically stable. Goals Bed Mobility Goal Independent Transfer Goal Independent,Front Wheeled Walker Gait Goal Independent,Front Wheel Walker Gait Distance 250 Days to Meet Goals 3 Frequency of Treatment Frequency Of Treatment Twice a Day Treatment Plan Physical Therapy Treatment Plan Bed Mobility Training,Transfer Training,Gait Training, Therapeutic Exercise,Balance Retraining,Post Op Education, Discharge Planning,Hot or Cold Pack,Neuromuscular Re-ed, Coordination Retraining,Manual Therapy Other Recommendations and Next Treatment ambulation Focus Recommendations To Nursing Amount of Assist Needed 1 Person Assist Discharge Recommendations PT Discharge Recommendations Home with Assistance, Outpatient PT Transportation Needs at Discharge Private Vehicle
[2019-06-02] MEDS: DOCUSATE 100 MG CAPSULE PO (20:45)
[2019-06-02] MEDS: ASPIRIN EC 81 MG TABLET PO (20:45)
[2019-06-02] MEDS: ATORVASTATIN 20 MG TABLET PO (20:46)
--- NOTE | 2019-06-02 21:38 | PC.NURSE ---
Shift summary: The patient was seen by PT at around 1630, and tolerated ambulation well. He is a one person assist with a FWW. He reports living a very active lifestyle. He is alert and oriented to his own ability and uses the call light appropriately. He has had 150 ml total of sero-sanguineous drainage emptied from his hemovac this shift. Aquacell dressing is clean/ dry/ intact and ice is in place. He reported a pain scale of zero all shift, and received scheduled ibuprofen and acetaminophen to prevent pain- he does not anticipate wanting narcotics. He has been able to use the urinal without having episodes of incontinence, but has a brief on. He has a bowel movement at home today before his surgery. His heart rate has stayed between 54 and 58, but the patient reports that his baseline is around 60. He has LR running at 125 that is ordered to be discontinued in the morning. He likes to snack, and likes to have sugar free and salt free snacks (salt free crackers, sugar free pudding). He is in bed, the bed is low and locked, and his call light is in reach.
--- NOTE | 2019-06-02 22:45 | PC.NURSE ---
pt denied pain. denied nausea. dressing cdi. pt ambulated in hallways. SCDs on. HV 180cc out. call light in reach. bed alarm active.
[2019-06-03] MEDS: CEFAZOLIN 2 GM/100 ML FROZ.PIGGY IV (00:16)
[2019-06-03] MEDS: IBUPROFEN 400 MG TABLET PO ×4 (00:16→13:07)
[2019-06-03 03:25] VITALS: BP 139/79; PULSE 51; RESP 16; TEMP 36.8; O2SAT 96
[2019-06-03 07:18] LABS: Hemoglobin 13.7 g/dL (13.5-17.5)
--- NOTE | 2019-06-03 07:26 | PM.PN.1 ---
Subjective Subjective Date Patient Seen: 06/03/19 Time Patient Seen: 07:26 Interval history: Patient is POD#1 s/p right TKA with Dr. Rueda. His pain has been mild and well controlled with Ibuprofen and Tylenol. He has mobilized with PT. Voiding appropriately. He denies any chest pain, shortness of breath, nausea or vomiting. Exam Vital Signs (past 8 hours): - 06/02/19 23:45 06/03/19 03:25 Temperature 98.3 F 98.3 F Pulse Rate 57 L 51 L Respiratory Rate 16 16 Blood Pressure 122/70 139/79 Pulse Oximetry 95 96 Oxygen Delivery Method Room Air Oxygen Flow Rate 0 Narrative Exam Narrative: 73 year old male resting comfortably in bed alert and oriented in no acute distress. Aquacel is CDI. Patient able to flex/extend the hip and ankle. Calves soft and compressible. Palpable pedal pulse. Objective Labs Result Diagrams: 06/03/19 06:54 Labs: Laboratory Results - last 24 hr 06/03/19 06:54 Hgb 13.7 Hct 40.0 L Assessment & Plan Assessment & Plan narrative: Patient is progressing well postoperatively. Continue to work with PT. Continue present pain control. He has supply of Oxycodone and Vistaril from previous surgery which he did not use. Discharge to home later today. Quality VTE Deep Vein Thrombosis/Pulmonary Embolism Present on Admission: No
[2019-06-03 07:48] VITALS: BP 127/80; PULSE 87; RESP 16; TEMP 36.7; O2SAT 94
--- NOTE | 2019-06-03 08:15 | PT.IPTN ---
Current Diagnoses Unilateral primary osteoarthritis, right knee (06/02/19) Surgery Performed Operation Date: 06/02/19 07:45 Actual Procedures p Total Knee Arthroplasty(Right) - Brisa Rueda MD Physical Therapy Treatment Note M2 PT-IP Current Condition Start: 06/02/19 16:58 Freq: NEEDED Status: Active Protocol: Document 06/02/19 16:20 AB (Rec: 06/02/19 17:19 AB [id number]) Physical Therapy Current Condition Current Condition Evaluation Date 06/02/19 Treatment Diagnosis s/p R TKA; difficulty in walking Onset Date 06/02/2019 Weight Bearing Status Weight Bearing Status Weight Bear as Tolerated Allowed Weight Bearing Amount (enter % RLE WBAT or #) (%) M3 PT-IP Subjective Start: 06/02/19 16:58 Freq: NEEDED Status: Active Protocol: Document 06/03/19 08:20 EG (Rec: 06/03/19 09:02 EG [id number]) Subjective Physical Therapy Visit Type Type Treatment Note Visit Start Time 08:20 Visit Stop Time 08:48 Total Visit Minutes 28 Number of SAP FICO ARCHITECT Visits 0 Physical Therapy Visit Comments Patient Comments Patient was finishing breakfast and reported that he was ready when we were. He reported a 0/10 pain at this time and said he did not sleep very well. Therapy Pain Assessment Pain Present Pain Present Denied Pain M4 PT-IP Mobility and Gait Start: 06/02/19 16:58 Freq: NEEDED Status: Active Protocol: Document 06/03/19 08:20 EG (Rec: 06/03/19 09:07 EG [id number]) PT-Bed Mobility Assessment Supine to Sit Supine to Sit Standby Assistance Sit to Supine Sit to Supine Standby Assistance Scooting Scooting to Edge of Bed Independent PT-Transfer Assessment Sit to and From Stand Sit to and from Stand Contact Guard Assistance,1 Person Assistance,Use of Upper Extremities Equipment Transfer Assistive Device Gait Belt,Front Wheeled Walker Orthotic/Prosthetic Devices or Brace: No Transfers Transfer Destination Bed Transfer Technique Ambulated using FWW Transfer Ability Level of Assist Contact Guard Assistance,1 Person Assistance,Use of Upper Extremities Comments Mobility Comments Patient completed transfer from supine to sit with head of bed elevated independently. Completed sit to stand with SBA with FWW in front of patient and gait belt for support. Patient appropriately extended R leg to stand up and maintained stability with movement. Patient was educated on importance of keeping one hand on stable surface during transfers from sit to stand. pt ambulated ~ 100 ft using FWW CGA and moved back to bed at end of treatment. Care management came in at end of treatment and PT left with call light and table placed within reach. Gait Assessment Gait Gait Assistance Required: Contact Guard Assist Distance (Feet) 100 Able to Maintain Weight Bearing Status Yes During Gait Assistive Devices Assistive Device Gait Belt,Front Wheeled Walker Orthotic/Prosthetic Devices or Brace: No Gait Deviations General Gait Pattern Antalgic,Decreased Stride Length,Decreased Feet Clearance,Step-to Gait Factors Limiting Gait Function Factors Limiting Gait Function Decreased Activity Tolerance, Decreased Strength,Limited Range of Motion,Pain,Poor Balance,Poor Safety Awareness PT-Balance Assessment Sitting Balance and Reactions Static Sitting Balance Ability Good Dynamic Sitting Balance Ability Good Standing Balance and Reactions Static Standing Balance Ability Fair Dynamic Standing Balance Ability Fair Device Used FWW M5 PT-IP Objective Assessments Start: 06/02/19 16:58 Freq: NEEDED Status: Active Protocol: Document 06/02/19 16:20 AB (Rec: 06/02/19 17:19 AB [id number]) Orientation Orientation/Cognition Level of Alertness Alert Orientation Name,Place,Situation Safety Awareness Understands Safety Issues Memory Description Short Term Impaired Gross Range of Motion Lower Extremity ROM Assessment Right Impaired Impairments R knee flexion : ~ 90 deg Strength Lower Extremity Strength Assessment Right Impaired Hip 3/5 Knee 3+/5 Coordination Assessment Gross Coordination Gross Coordination WNL Sensation Assessment Sensation Gross Sensation WNL Muscle Tone Muscle Tone WNL Yes M6 PT-IP Treatment Start: 06/02/19 16:58 Freq: NEEDED Status: Active Protocol: Document 06/03/19 08:20 EG (Rec: 06/03/19 09:02 EG [id number]) Physical Therapy Treatment Education Education Provided Precautions,Weight Bearing Status,Safety M7 PT-IP Assessment and Plan Start: 06/02/19 16:58 Freq: NEEDED Status: Active Protocol: Document 06/03/19 08:20 EG (Rec: 06/03/19 09:02 EG [id number]) PT Summary Assessment and Plan Potential Rehabilitation Potential Good Status of Condition at Evaluation Stable Summary Impairments Pain,ROM,Strength,Balance,Bed Mobility,Transfers,Gait, Activity Tolerance Assessment Summary Patient was supine at time of treatment with pillow under L and R ankle and SCD's on bilateral legs. Patient was SBA moving from supine<>sit with head of bed elevated. Patient was SBA for transfer from sit to stand and needed to extend R leg forward before standing up. Patient had FWW adjusted to correct height and needed verbal cues to relax upper traps when ambulating. Patient performed a step-to gait but maintained a initial contact with the heel. Patient is safe to go home and was educated on importance of ROM of the knee, icing, and HEP for optimal recovery from surgery. Goals Bed Mobility Goal Independent Transfer Goal Independent,Front Wheeled Walker Gait Goal Independent,Front Wheel Walker Gait Distance 250 Days to Meet Goals 3 Frequency of Treatment Frequency Of Treatment Twice a Day Treatment Plan Physical Therapy Treatment Plan Bed Mobility Training,Transfer Training,Gait Training, Therapeutic Exercise,Balance Retraining,Post Op Education, Discharge Planning,Hot or Cold Pack,Neuromuscular Re-ed, Coordination Retraining,Manual Therapy Other Recommendations and Next Treatment continue with ambulation Focus Recommendations To Nursing Amount of Assist Needed 1 Person Assist Discharge Recommendations PT Discharge Recommendations Home with Assistance, Outpatient PT Transportation Needs at Discharge Private Vehicle
--- NOTE | 2019-06-03 08:59 | CM.DANOTE ---
DCP Assessment: EMR Reviewed: Patient is a pleasant 73 year old male lying in bed. Introduced self and role. Patient had right TKA performed by Dr. Rueda. PCP is Dr. Stein. Patient alert and oriented X3. Patient states lives on own in a two story house but has no need to go down stairs to bottom floor. Patient states has FWW at home, elevated toilet seat, and grab bars in shower. PT evaluation completed and recommended home with assistance. I: [employer] Medicare Advantage/Self pay P: Patient plan for discharge to go home with daughter, Wilson, who will be his hourly caregiver for several days and stay with her at her house which has a ramp for entrance. No identified discharge needs at this time. CM department will continue to follow and be available to assist with any discharge planning needs that may arise. Lorna Baker, Student Nurse Hortensia Rueda RN/CM Discharge Planning/Care Management CM Discharge Assessment Start: 06/03/19 08:55 Freq: Status: Active Protocol: Document 06/03/19 08:55 HS (Rec: 06/03/19 08:58 HS [id number]) Discharge Planning Assessment Assigned Wet End Helper Hortensia Rueda RN DPOA/Assigned Designee Name Tariq Avila Advance Directives? Yes Advance Directives on File No History Provided By Patient,Medical Record Has Patient been admitted in last 30 No days? Prior Living Arrangements House Household Members none Type of transporation used prior to Drives own vehicle admit Independent with ADL's Yes Is patient alert and oriented? Yes Caregiver for Another No DME Already Rented / Owned Elevated Toilet Seat,FWW / Walker Patient/Family Preference OP PT Therapy Barriers to Discharge No Discharge Plan Home Referrals Initiated None needed Whiteboard Updated in Patient Room with Yes name and ext. # of Wet End Helper Review Status In Process Next Review Type Continued Stay Review Pre-Anesthesia Assessment Start: 05/20/19 12:16 Freq: Status: Complete Protocol: Document 05/20/19 12:16 CAB (Rec: 05/20/19 13:33 CAB [id number]) Pre-Anesthesia Assessment Preferred Name Earl Patient Information Reviewed Via Phone Assessment Assessment Completed With Patient Diagnostic Results BMP/CMP,CBC Comment Outside labs/EKG scanned to record Primary Care Provider Sung Stein Seen Specialist in Last 12 Months Yes Specialist Seen Production Laborer,Orthopedist Primary Language Swedish Preferred Language Swedish Programmer Analyst Health It Required No Height 167.64 cm Weight 79.379 kg Body Mass Index (BMI) 28.2 Hearing Ability Normal Visual Impairment No Limitations Dentition Type Teeth, Natural Present Barriers to Learning None Other Aids No Hx Anesthesia Reactions No Hx Family Anesthesia Reaction No Hx Malignant Hyperthermia No Hx Blood Transfusions No Anesthesia Review Requested No alcohol intake former Alcohol Intake Frequency Other: Quit 40-45 years ago Smoking Status Former smoker how long ago did patient quit smoking Quit 1972 Substance Use Type does not use Pain Present Pain Reported Musculoskeletal Symptoms Abnormal Gait,Difficulty Walking,Joint Pain,Joint Stiffness,Limited Range of Motion,Muscle Cramps History of Falling (Recent or History of No ) Patient is completely paralyzed or No completely immobile Mental Status Oriented to own ability Is patient on oxygen? No Does patient have PANDA/SOB No Hx Sleep Apnea Yes CPAP/BIPAP use prescribed and used routinely Will Bring CPAP/BIPAP DOS Yes Currently Taking a Beta Umberto Yes Can You Climb a Flight of Stairs Without Yes SOB Hx Chest Pain No Hx SOB No Hx Syncope or Dizziness No Anti-Coagulant Therapy No Has a Production Laborer Yes: Dr. Aguilar-last visit Cardiac Testing Yes: Echo 02/25/19 EF 70%, aortic valve gradient increased Hx Pacemaker/ICD No Pacemaker Rep Required? No Cardiac Clearance Received Not Applicable Comment Cardiac records scanned to record Diet Type At Home Low Carb,Low Sodium dysphagia No Genitourinary Symptoms Dribbling,Genital Lesions Bladder Pattern Urgency Urinary Catheter Present No Hx Urinary Self Catheterization No Diabetes No: Pre-diabetes HgbA1C 5.4 Date 04/13/19 Hx Drug Resistant Organism No Presence of External or Internal Medical No Devices Have you traveled outside the [facility] in the last 30 days? Marital Status 01/25/19 Lives With none Prior Living Arrangements House Number of Floors (Floors) Two Floors Support System Child/Children Does the Patient Have Assistance After Yes: Daughter will stay w/pt, Surgery recently Patient Discharge Plan Description Return Home Comment Pt advised 1 day length of stay per surgeon Feels Safe in Current Environment Yes Been Physically Hurt or Threatened By a No Person in Current Environment Do you have thoughts of harming yourself None or others? Are you currently considering suicide? No Do you have a plan to hurt yourself or No Plan others? Do You Have Any Spiritual Beliefs That No May Affect Your HC Choices? Do You Have Any Cultural Practices That No May Affect Your HC Choices? Comment [place] Who Can We Speak to About Patient's Care Family, friends Identifying Code for Release of Patient Declines to issue Information Health Care Proxy/Next of Kin Kami (daughter) Health Care Proxy Phone Number Kami: [phone] Emergency Contact Name Kami (daughter) Jacquie ( friend) Emergency Contact Phone Number Kami: [phone] Jacquie: Pt to update dos Advance Directives? Yes Advance Directives on File No
[2019-06-03] MEDS: lisinopriL 20 MG TABLET 40 MG PO (09:10)
[2019-06-03] MEDS: FISH OIL 1,000 MG CAPSULE 1000 MG PO (09:11)
[2019-06-03] MEDS: hydroCHLOROthiazide 25 MG TABLET PO (09:11)
[2019-06-03] MEDS: ASPIRIN EC 81 MG TABLET PO (09:11)
[2019-06-03] MEDS: DOCUSATE 100 MG CAPSULE PO (09:11)
[2019-06-03] MEDS: POTASSIUM CHLORIDE 10 MEQ TAB PO (09:11)
[2019-06-03] MEDS: AMLODIPINE 2.5 MG TABLET PO (09:11)
[2019-06-03] MEDS: ACETAMINOPHEN 325 MG TABLET 650 MG PO (09:11)
[2019-06-03] MEDS: METOPROLOL ER 50 MG TABLET PO (09:12)
--- NOTE | 2019-06-03 10:29 | PC.NURSE ---
Addendum entered by Lindsey Ramirez R.N. 06/03/19 14:09: Pt's pain 04/17 controlled on scheduled Tylenol and Ibuprofen. Discharge summary packet reviewed with pt and his daughter was present who is driving him home. Pt reports having stool softeners already at home and Oxycodone from previous left knee replacement, explained to take Oxycodone PRN as prescribed with this surgery, pt states He probably will not need. Pt states has follow up appointments already made with OP PT as well. No further voiced concerns. Pt ready to go home, left unit via wheelchair at 1405 with all belongings and CLAY DIGGER escort. Pt left unit in no distress. Original Note: Day Shift- Hemovac emptied for approx 75mls at 1025. Removed at 1025 with out difficulty. Site cleansed and folded 2X2 gauze and tegaderm applied. pt tolerated well stating thiat was the most discomfort he's felt thus far.
[2019-06-03 12:11] VITALS: BP 105/66; PULSE 75; RESP 15; TEMP 36.4; O2SAT 96
== END 2019-06-03 14:05 | disposition home or self-care (01) ==
LOC: OR 06:01 → AC 06:04 → OR 06:07 → AC 11:41
PROVIDERS: PCP Family Medicine; Referring Provider Family Medicine; Visit Provider Orthopaedic Surgery
PROC: 0SRC0JZ Replacement of Right Knee Joint with Synthetic Substitute, Open Approach (ICD-10-PCS; CPT 27447; principal; 2019-06-02 07:45)
DX: M17.11 Unilateral primary osteoarthritis, right knee (principal)
CPT/HCPCS: 27447; 36415; 73560; 85014; 85018; 97116; 97161; 97530; C1776; A9270; C9290; J0690; J2704